=== PATIENT | female | born 2000 | race Caucasian/White ===

== ENCOUNTER → 2021-05-22 09:16 | Outpatient (CLI) | payer BC, SELFPAY ==
--- NOTE | 2021-05-22 09:21 | US_ITS ---
PROCEDURE: US ABDOMEN LIMITED CLINICAL INDICATION: ABD PAIN RUQ, EPIGASTRIC PAIN, BLOATING SYMPTOMS COMPARISON: No exams were available for comparison FINDINGS: PANCREAS: Unremarkable. No obvious mass or abnormal fluid collection. No ductal dilatation LIVER: No focal liver lesions demonstrated. Homogeneous echogenicity. No intrahepatic biliary ductal dilatation evident. There is appropriate direction of blood flow within a non dilated portal vein RIGHT KIDNEY: Unremarkable. Normal size and echogenicity. No hydronephrosis GALLBLADDER: No gallstones, gallbladder wall thickening, pericholecystic fluid, or biliary dilatation. IMPRESSION: Unremarkable limited abdominal ultrasound as detailed above disc Dictated by: Luis Hansen MD 05/22/2021 13:44 Luis Hansen MD in [place] 05/22/2021 13:44
== END ==
PROVIDERS: PCP Family Medicine; Visit Provider Nurse Practitioner Family
DX: R10.11 Right upper quadrant pain (principal); R10.13 Epigastric pain; R14.0 Abdominal distension (gaseous); K59.00 Constipation, unspecified
CPT/HCPCS: 76705

== ENCOUNTER → 2021-06-06 10:11 | Outpatient (CLI) | payer BC, SELFPAY ==
--- NOTE | 2021-06-06 10:15 | NM_ITS ---
PROCEDURE: NM HEPATOBILIARY W PHARM CLINICAL INDICATION: ABD PAIN/ BLOATING SYMPTOMS COMPARISON: US US ABDOMEN LIMITED from 05/22/2021 TECHNIQUE: DOSE: 7.55 mCi technetium Choletec. Ensure was given for fatty meal. No pain after the fatty meal. FINDINGS: Homogeneous activity is present within the hepatic parenchyma. Activity is present in the gallbladder by 5 minutes. Activity is present in the small bowel by 45 minutes. The gallbladder ejection fraction is calculated to be 66 percent. No pain reported with fatty meal. IMPRESSION: Negative hepatobiliary scan with normal gallbladder ejection fraction Dictated by: Luis Hansen MD 06/06/2021 14:51 Luis Hansen MD in [facility] 06/06/2021 14:51
--- NOTE | 2021-06-06 11:16 | HMH.ITSHM ---
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 []SPIRONOLACTONE CONTROL
== END ==
PROVIDERS: PCP Family Medicine; Visit Provider Nurse Practitioner Family
DX: R10.11 Right upper quadrant pain (principal); R14.0 Abdominal distension (gaseous)
CPT/HCPCS: 78227; A9537

== ENCOUNTER → 2021-11-08 20:20 | Outpatient (CLI) | payer BC, SELFPAY ==
--- NOTE | 2021-11-08 20:33 | XR_ITS ---
PROCEDURE INFORMATION: Exam: XR Chest Exam date and time: 11/08/2021 8:33 PM Age: 21 years old Clinical indication: Dyspnea TECHNIQUE: Imaging protocol: XR of the chest. Views: 2 views. COMPARISON: NM HEPATOBILIARY W PHARM 06/06/2021 12:20 PM FINDINGS: Lungs: Mild pulmonary hyperaeration, which may be on the basis of asthmatic bronchitis. No consolidation. Normal appearance of pulmonary vascular markings. Pleural spaces: Unremarkable. No pleural effusion. No pneumothorax. Heart/Mediastinum: Unremarkable. No cardiomegaly. Bones/joints: Unremarkable. IMPRESSION: Mild bilateral pulmonary hyperaeration. The possibility of asthmatic bronchitis is considered. There is no evidence of alveolar consolidation.
== END ==
PROVIDERS: PCP Nurse Practitioner Family; Visit Provider Nurse Practitioner Family
DX: R06.00 Dyspnea, unspecified (principal)
CPT/HCPCS: 71046

== ENCOUNTER 2022-06-23 18:57 | Emergency (ER) | payer BC, SELFPAY ==
[2022-06-23 19:05] VITALS: BP 131/80; PULSE 90; RESP 16; TEMP 36.8; O2SAT 98; BMI 18.6
--- NOTE | 2022-06-23 19:14 | HMH.EDUTC ---
[facility] [place] Disposition Clinical Impression: Encounter for screening for COVID-19 Disposition: Home, Self-Care Condition on Discharge: Good Instructions: DI for COVID-19 (Suspected or Confirmed ), Preventing the Spread of Coronavirus Discharge Instructions Additional Instructions: Drink plenty of fluids. Take tylenol for pain or fever. Follow up with your regular doctor. GO TO THE ER FOR ANY WORSENING SYMPTOMS Quarantine until you know the results of your covid-19 test. Notify your school or workplace of your results and follow their instructions regarding return to work/school. Referrals: Milla Mathew [Primary Care Provider] - Time of Disposition: 19:15 Medical Decision Making - Medical Records Medical records reviewed: No: I reviewed the patient's medical records. - Toribio Inquiry Pt receiving controlled substance: No Vital Signs: 06/23/22 19:05 06/23/22 19:17 Temperature 98.3 F 98.3 F Temperature Source Oral Pulse Rate 90 Pulse Rate [Left] 90 Respiratory Rate 16 16 Blood Pressure 131/80 Blood Pressure [Right Arm] 131/80 Blood Pressure Mean [Right Arm] 97 02 Sat by Pulse Oximetry 98 [facility] [place] HPI - General Stated complaint: COVID TEST FOR sURG 06/26 Time Seen by Provider: 06/23/22 19:10 Mode of Arrival: Ambulatory Source of Information: Patient Limitations: No Limitations Description of Symptoms (Recalled from Triage Doc. by RN): patient comes in for a pre procedure covid test. HEENT Symptoms (Recalled from RN notes): No Resp Symptoms (Recalled from RN notes): No Skin Symptoms (Recalled from RN notes): No MS Symptoms (Recalled from RN notes): No Functional Status (Recalled from RN notes): n/a - History of Present Illness Provider Complaint: She is here to have a covid test before having a surgical procedure. she denies any complaints or concerns. - Related Data Previous Rx's Medication Instructions Recorded cariprazine 1.5 mg capsule 1.5 mg PO DAILY #30 cap 04/19/22 fluoxetine 40 mg capsule 40 mg PO DAILY #30 cap 04/19/22 trazodone 50 mg tablet 50 mg PO QHS PRN #30 tab 04/19/22 Allergies Allergy/AdvReac Type Severity Reaction Status Date / Time No Known Allergies Allergy Verified 04/19/22 11:33 - Worker's Comp Is this a Worker's Comp case?: No [facility] History - Hepatitis A Screen Attestation statement:: This patient has been screened for Hepatitis A risk factors. I have reviewed the patient's past medical history: Yes Comment: She did get the COVID vaccines. -she got the J&J. -and the booster - Social History Smoking Status: Never smoker Alcohol Intake: current Alcohol Intake Frequency:: a few times a month Substance Use Type: denies use Occupational Status: unemployed, other ROS Obtained: Yes All systems reviewed & no additional complaints - Constitutional Constitutional: Reports system reviewed and no additional complaints, except as docu - Eyes Eyes: Reports system reviewed and no additional complaints, except as docu - ENT Ears, Nose, Mouth, and Throat: Reports system reviewed and no additional complaints, except as docu - Cardiovascular Cardiovascular: Reports system reviewed and no additional complaints, except as docu - Respiratory Respiratory: Reports system reviewed and no additional complaints, except as docu - Gastrointestinal Gastrointestingal: Reports: system reviewed and no additional complaints, except as docu Physical Exam - General General appearance: alert, in no apparent distress - Head Head exam: atraumatic, normocephalic, normal inspection - Eye Eye exam: Present: normal appearance, PERRL, EOMI - ENT ENT exam: Present: normal exam, normal oropharynx, mucous membranes moist, TM's normal bilaterally, normal external ear exam - Neck Neck exam: Present: normal inspection, full ROM, trachea midline. Absent: meningismus, lymphadenopathy - Chest Chest inspection: Present: normal inspection, symmetric piter
[2022-06-23 19:17] VITALS: BP 131/80; PULSE 90; RESP 16; TEMP 36.8
== END 2022-06-23 19:18 | disposition home or self-care (01) ==
PROVIDERS: Emergency Provider Nurse Practitioner Family; PCP Nurse Practitioner Family
DX: Z20.822 Contact with and (suspected) exposure to COVID-19 (principal); Z01.812 Encounter for preprocedural laboratory examination
CPT/HCPCS: 99212; C9803; G0463; U0003; U0005

== ENCOUNTER 2025-07-09 06:51 | Outpatient (CLI) | payer BC, SELFPAY ==
--- OUTSIDE RECORDS SUMMARY | 2025-06-07 09:45 | XMS_ITS | Encounter Summary ---
Author Organization [facility] Address [address] [id number] Care Team Providers Care Clinical Physician Assistant Name Role Phone Milla Mathew L[employer] KIL[employer] AND RECAUSTICIZING OPERATOR Primary Care Provider [phone] Reason for Visit * Reason Comments Genetic Counseling Hereditary Cancer Ge netic Testing * Consultation (Routine) - Closed Specialty Diagnoses / Procedures Referred By Contac t Referred To Contact Genetics Diagnoses Encounter for nonprocreative genetic counseling Milla Mathew, L[employer] KIL[employer] AND RECAUSTICIZING OPERATOR [address] [place] [address] Phone: tel: fax: [facility] [address] [facility] [place] [address] Phone: tel: fax: Referral ID Status Reason Start Date Expiration Date V isits Requested Visits Authorized [id number] Closed Specialty Services Required 04/28/2025 10/28/2026 1 1 Encounter Details Date Type Department Care Team (Latest Contact Info) Description 06/07/2025 9:45 AM EDT Clinical Support [facility] Neck [facility] Respiratory [address] [facility] [place] [address] Michelle Pack Encounter for nonprocreative genetic counseling (Primary Dx) Social History Tobacco Use Types Packs/Day Years Used Date Smoking Tobacco: Never Smokeless Tobacco: Never PHQ-2 Answer Date Recorded Patient Health Questionnaire-2 Score 0 06/03/2023 PHQ-2A Answer Date Recorded Patient Health Questionnaire-2 Score 0 06/03/2023 Comments Unknown Sex and Gender Information Value Date Recorded Sex Assigned at Female 11/10/2021 7:55 AM EST Legal Sex Female 6:48 PM EDT Gender Identity Female 11/10/2021 7:55 AM EST Sexual Orientation Straight 11/10/2021 7: 55 AM EST documented as of this encounter Miscellaneous Notes * Progress Notes - Michelle Pack - 06/07/2025 9:45 AM EDT Images from the original note were not included. [facility] Clinical Cancer Genetics Consultation Patient Name: Monica Guerrier Date of : 2000 This patient's identity has been confirmed using name and date of and the patient has confirmed that they are physically located in [place] in order to proceed with this appointment via telehealth. Monica is a 24 y.o. year old female who was referred for genetic counseling due to a family history of paraganglioma and a family history of a known pathogenic SDHD mutation found in her sister. She was accompanied to her visit by her mother. Ms. Guerrier reports no personal history of cancer. Ms. Guerrier provided the following personal history information: Menarche- 12 Total number of pregnancies- 0 Age at first live - N/A Hx - No control use- Yes, used for 6 years Menopause status- premenopausal Hormone replacement use- No Mammogram- No Hx Breast Biopsy- 2 ROSANGELA/BSO- No Colonoscopy- No Upper endoscopy- Yes, in year 2021 Ms. Guerrier was interested in discussing her risk for a hereditary cancer syndrome. FAMILY HISTORY (see pedigree below): - Sister diagnosed with a unilateral paraganglioma at 31, living at 32. 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 - Mother has not been diagnosed with cancer but underwent hereditary cancer genetic testing [facility] panel and was negative, no clinically significant variants detected (report dated 02/03/2025). Of note, her genetic testing did not include the SDHD or ETV6 genes. - Maternal aunt diagnosed with breast cancer at 42, living at 67. - Maternal grandfather diagnosed with lung cancer at 79, at 79. - Paternal grandfather diagnosed with a brain tumor at 50 and colon cancer at 83, at 83. Patient reports that her family believes his brain tumor may have been a paraganglioma. We do have copies of the genetic testing results for the patient's mother and sister. We do not have the medical records regarding the other diagnoses in the patient's family. She denies any Ashkenazi Mu-Ism ancestry or consanguinity. RISK ASSESSMENT: The patient's family history of paraganglioma as well as a known SDHD pathogenic mutation in her sister is concerning for Hereditary Paraganglioma-Pheochromocytoma syndrome. We discussed that Ms. Guerrier has a 50% chance of inheriting the same SDHD pathogenic mutation that was identified in her sister. Genetic testing is reasonable considering the results could significantly change the cancer screening recommendations and risk reduction options for this patient and their family members. This assessment is based upon the medical and family history as provided and may change in the future should new information be obtained. CANCER RISK ASSESSMENT AND GENETIC COUNSELING: We reviewed the patient's medical and family historyin detail. We also discussed the characteristics of sporadic cancer versus familial cancer versus hereditary cancer syndromes. Family histories typical of hereditary cancer syndromes usually include multiple close relatives diagnosed with the same type of cancer or cancer types that are part of a defined hereditary condition. Hereditary cancer is usually diagnosed at a younger than expected age (<50 years of age) and may involve more than one primary site in a single individual. Regarding the hereditary forms of cancer, autosomal dominant inheritance was reviewed. We briefly discussed potential changes in screening and management guidelines that could occur, based on genetic testing results. Since there is a known pathogenic SDHD mutation identified in the family, we specifically discussedSDHD-associated Hereditary Paraganglioma-Pheochromocytoma (PGL/PCC) syndrome. PGL/PCC syndrome is caused by pathogenic mutations in the SDHx genes. There are specific phenotype-genotype correlations associated with the different SDHx genes. SDHD-associated PGL/PCC is primarily associated with head and neck paragangliomas (PGLs), although extra-adrenal PGL and PCC can occur. Patients with SDHD mutations are more likely to have multifocal disease than patients with sporadic tumors or those with mutations in SDHB genes. SDHD- associated PGL/PCCs have a <5% risk of malignancy. Approximately 43%of patients with an SDHD mutation have a PGL/PCC identified in their lifetime, however the risk tends to be decreased if the mutation was inherited from the patient's mother. Individuals who inherit an SDHD mutation from their father is at high risk of developing PGL/PCC. Individuals who inherit anSDHD mutation from their mother is usually not at risk of developing disease, however there have been reports of individuals with maternally-inherited SDHD mutations developing PGL/PCC. The SDHD gene shows a parent of origin effect. In most cases, only individuals who inherit the SDHDgene mutation from their fathers are at increased risk to develop the disease manifestations associated with Hereditary PPGL syndrome. When possible, genetic testing of parents may help predict the likelihood that this patient will be affected by Hereditary PPGL syndrome. Because Ms. Guerrier's sister developed a paraganglioma and was found to have the familial SDHD mutation, it is highly likely this mutation was inherited from their father. However, it is not yet certain that there is no risk when the SDHD gene mutation is inherited from the mother, and the inheritance of this mutation has not been confirmed. Other tumors associated with hereditary PGL/PCC syndromes include gastrointestinal stromal tumors (GISTs), however these do not tend to occur as frequently in patients with SDHD mutations. Renal cellclear cell cancers are also included in the tumor spectrum of PGL/PCC syndromes, however the overall risk is currently unknown. We also reviewed management recommendations for individuals with a pathogenic SDHD mutation. We discussed the concept of a variant of uncertain significance result due to her sister's identification of a variant of uncertain significance in the ETV6 gene. The laboratory reports a VUS when they don???t know if that exact change causes an increased risk of cancer or not. It is not recommended that changes to a patient's clinical management be based upon a VUS genetic test result. The majority of VUSs are eventually reclassified to be benign. GENETIC TESTING: Ms. Guerrier meets criteria for SDHD genetic testing since there is a known pathogenic SDHD mutation previously identified in the patient's sister. After reviewing the patient???s medical history, family histories, and risk assessment, we discussed genetic testing options. We reviewed the risks, benefits, and limitations of Single Site Analysis of SDHD through [facility]. This test analyzes Ms. Guerrier for the specific SDHD mutation that was identified in her sister. We discussed that since Ms. Guerrier has an unexplained paternal history of colon cancer and apossible brain tumor in her paternal grandfather that was suspected to be a paraganglioma, it wouldbe reasonable to consider pursuing a panel test at this time. Ms. Guerrier expressed interest in knowing if she may also have the ETV6 VUS for future reclassification purposes. ? The patient elected to proceed with the following test: ? CancerNext-Expanded Genes included: AIP, ALK, APC, FIOR, AXIN2, BAP1, BARD1, BMPR1A, BRCA1, BRCA2, BRIP1, CDC73, CDH1, CDK4, CDKN1B, CDKN2A, CEBPA, CHEK2, CTNNA1, DDX41, DICER1, EGFR, EPCAM, ETV6, FH, FLCN, GATA2, GREM1,HOXB13, KIT, LZTR1, MAX, MBD4, MEN1, MET, MITF, MLH1, MSH2, MSH3, MSH6, MUTYH, NF1, NF2, NTHL1, PALB2, PDGFRA, PHOX2B, PMS2, POLD1, POLE, POT1, CGEHU2A, PTCH1, PTEN, RAD51C, RAD51D, RB1, RET, RPS20, RUNX1, SDHA, SDHAF2, SDHB, SDHC, SDHD, SMAD4, SMARCA4, SMARCB1, SMARCE1, STK11, SUFU, WAKW447, TP53,TSC1, TSC2, VHL, WT1 ? Lab: [facility] ? Turnaround Time: Approximately 3 weeks ? We explained possible results of genetic testing including positive or negative and briefly discussed the implications of each. PLAN: A saliva sample kit will be sent to the patient's address, and they will complete and send it to [facility] laboratory for testing of the genes in the panel above. [facility] will contact the patient's insurance company to find out if they will pay for the testing. If it is estimated that the patient will receive a bill greater than $100, a hr representative from [facility] will call or text the patient to discuss whether or not the patient still wants the testing performed, the laboratory's available payment plans, etc. I will contact the patient by phone with the genetic test results when they are available, usually in about 3 weeks from the date that the lab receives the sample. The Genetic Information Nondiscrimination Act (ROSA ELENA) was reviewed. It was a pleasure to meet with this patient and I remain available to the patient, their physicians, and family for future questions or concerns. I can be reached at [phone]. Written informationregarding genetic testing was sent to the patient following their appointment. Telehealth Statement Patient Verification Patient identity has been confirmed using name and date of ? Yes Authorizations and Agreements/Telemedicine Consent sent and consent confirmed? Yes Patient Location: Home/Other Patient confirms they are physically located in [place]? Yes If the patient is not physically located in [place], the provider has confirmed [facility] thatthe provider is authorized to provide services in patient's stated location? N/a Provider Location: [facility] facility Audio and video or audio only? Audio and video Total time regarding patient care was approximately 60 minutes Cosigned by Jackie Nava GC at 06/08/2025 10:02 AM EDT Associated attestation - Jackie Nava GC - 06/08/2025 10:02 AM EDT Jackie Nava, , [facility] reviewed this patient's case and agrees with the recommendations that werediscussed and the testing that was ordered. documented in this encounter Plan of Treatment Not on file documented as of this encounter Visit Diagnoses Diagnosis Encounter for nonprocreative genetic counseling- Primary documented in this encounter Additional Health Concerns Assessment Noted Time A fall risk assessment has been complete d for the patient 06/03/2023 8:27 AM EDT documented as of this encounter Care Teams Clinical Physician Assistant Relationship Specialty Start Date End Date Milla Mathew APRN [address] [place] [address] PCP - General 06/03/23 documented as of this encounter
--- OUTSIDE RECORDS SUMMARY | 2025-07-09 06:54 | XMS_ITS | Clinical Summary ---
[facility] Organization [facility] Address [address] [place] [address] Care Team Providers Care No Bake Molder Name Role Phone Tiffanie Aguilar APRN Primary Care Provider Allergies No known active allergies Medications ALPRAZolam (XANAX) 0.5 MG tablet Take 1 tablet by mouth 2 (Two) Times a Day As Needed. for anxiety 3 Active levonorgestrel (Kyleena) 19.5 MG intrauterine device IUD To be inserted one time by prescriber. Route intrauterine. 3 Active Tretinoin, Facial Wrinkles, (Tretinoin, Emollient,) 0.05 % cream Apply topically. Active Vortioxetine HBr (Trintellix) 10 MG tablet tabletIndications :Generalized anxiety disorder Take 1 tablet by mouth Daily. 90 tablet 1 5 Active Active Problems Problem Noted Date Diagnosed Date Family history of breast cancer 06/04/2023 Assessment & Plan (06/04/2023 4:44 PM EDT): Maternal aunt diagnosed in her 40s-unsure of genetic testing. Mass of upper outer quadrant of right breast 09/2023 Anxiety and depression 11/10/2021 Generalized anxiety disorder 11/08/2021 Encounters Date Type Department Care Team Description 07/08/2025 Documentation [facility] GENERAL SURGERY [address] [place] [address] Jael Elise MD 07/07/2025 Telephone [facility]ERY [address] [facility] [address] [place] [address] Jael Elise MD 07/06/2025 Telephone [facility] [address] [facility] [address] [place] [address] Jael Elise MD 07/05/2025 Travel 06/28/2025 Prep for Surgery [facility] [address] [place] [address] Jael Elise MD Biliary dyskinesia (Primary Dx) 04/28/2025 Patient rounding ([facility]) [facility] [address] [place] [address] Jessica Montano 04/25/2025 Results Follow-Up [facility] [address] [place] [address] Tiffanie Aguilar APRN 04/21/2025 11:00 AM EDT Office Visit [facility] [address] [place] [address] Tiffanie Aguilar, LINDA Generalized anxiety disorder (Primary Dx); Screening for endocrine disorder; Screening for cardiovascular condition; History of breast lump/mass excision; History of abnormal cervical Pap smear 04/21/2025 Travel from Last 3 Months Immunizations Immunization Administration Dates Next Due DTaP, Unspecified 09/22/2003, 1,03/14/2000,12/30,1999 Fluzone (or Fluarix & Flulav al for VFC) >6mos 09/05/2020 HPV, Unspecified 11/22/2014,07/01/2014, 4 Hep A, 2 Dose 07/03/2018 Hep B, Unspecified 09/16/2000,06/14/2000, 000 Hib (PRP-T) 12/16/2000, 0,01/09/2000,10/31 IPV 09/22/2003 Influenza Injectable Mdck Pf Quad 08/24/2022 MCV4 Unspecified 06/07/2011 MMR 09/22/2003,09/16/2000 Meningococcal MCV4P (Menactra) 07/03/2018 Pneumococcal Conjugate 13-Va lent (PCV13) 12/16/2000,09/16/2000,06/14/2000 Polio, Unspecified 01/09/2008,12/16/2000, 999 Tdap 06/27/2021,05/28/2011 Varicella 06/07/2011,09/16/2000 Family History Medical History Relation Name Comments Breast cancer Maternal Aunt Caron Hernández 30's Diabetes Paternal Aunt Andra Berry Colon cancer Paternal Grandfather Nancie Guerrier Diabetes Paternal Grandfather Nancie Guerrier Diabetes Paternal Grandmother Kathi Guerrier Stroke Paternal Grandmother Kathi Guerrier Vision loss Paternal Grandmother Kathi Guerrier Gla ucoma Endometrial cancer Neg Hx Ovarian cancer Neg Hx Uterine cancer Neg Hx Relation Name Status Comments Maternal Aunt Caron Hernández Paternal Aunt Andra Berry Paternal Grandfather Nancie Fareed Paternal Grandmother Kathi Guerrier Social History Tobacco Use Types Packs/Day Years Used Date Smoking Tobacco: Never Smokeless Tobacco: Never Tobacco Cessation:Counseling Given: Not Answered Alcohol Use Standard Drinks/Week Comments Yes 0 (1 standard drink = 0.6 oz pur e alcohol) occasional PHQ-2 Answer Date Recorded Patient Health Questionnaire-2 Score 0 04/21/2025 Comments No Sex and Gender Information Value Date Recorded Sex Assigned at Female 02/10/2024 7:51 PM EDT Legal Sex Female 11:27 AM EDT Gender Identity Female 02/10/2024 7:51 PM EDT Sexual Orientation Not on file Last Filed Vital Signs Vital Sign Reading Time Taken Comments Blood Pressure 112/68 04/21/2025 11:05 AM EDT Pulse 91 04/21/2025 11:05 AM EDT Temperature 36.4 C (97.5 F) 04/21/2025 11:05 AM EDT Respiratory Rate 14 04/21/2025 11:05 AM EDT Oxygen Saturation 99% 04/21/2025 11:05 AM EDT Inhaled Oxygen Concentration - - Weight 59 kg (130 lb) 04/21/2025 11:05 AM EDT Height 170.2 cm (5' 7 ) 04/21/2025 11:05 AM EDT Body Mass Index 20.36 04/21/2025 11:05 AM EDT Plan of Treatment Upcoming Encounters Date Type Department Care Team (Late st Contact Info) Description 03/11/2026 8:50 AM EDT Office Visit [facility] OBGYN [address] [place] [address] Hugo Trent MD [address] [facility] [address] [place] [address] Health Maintenance Due Date Last Done Comments ANNUAL PHYSICAL 05/11/2022 HEPATITIS C SCREENING 05/11/2022 COVID-19 Vaccine (3 - 2023-2 5 season) 2024 09/21/2021, 02/25/2021 INFLUENZA VACCINE 08/25/2025 08/24/2022, 09/05/2020 PAP SMEAR 02/16/2026 02/16/2025, 02/11/2024 Annual Gynecologic Pelvic an d Breast Exam 02/17/2026 02/16/2025 TDAP/TD VACCINES (3 - Td or Tdap) 06/27/2031 021, 05/28/2011 Pneumococcal Vaccine 0-49 Completed 2000, 09/16/2000, 06/14/2000 HPV VACCINES Completed 11/22/2014, 08/0 05/2014, 05/11/2014 MAMMOGRAM Discontinued 06/11/2023 CHLAMYDIA SCREENING Discontinued 02/16/2025, 4 Procedures Procedure Name Priority Date/Time Associated Diagnosis Comments US GALLBLADDER Routine 07/05/2025 10:01 AM EDT RUQ pain VITAMIN B12 AND FOLATE Routine 04/21/2025 11:52 AM EDT Generalized anxiety disorder VITAMIN D,25-HYDROXY Routine 04/21/2025 11:52 AM EDT Generalized anxiety disorder CBC (NO DIFF) Routine 04/21/2025 11:52 AM EDT Generalized anxiety disorder TSH Routine 04/21/2025 11:52 AM EDT Generalized anxiety disorder Screening for endocrine disorder T4, FREE Routine 04/21/2025 11:52 AM EDT Generalized anxiety disorder Screening for endocrine disorder LIPID PANEL Routine 04/21/2025 11:52 AM EDT Generalized anxiety disorder Screening for cardiovascular condition COMPREHENSIVE METABOLIC PANEL Routine 04/21/2025 11:52 AM EDT Generalized anxiety disorder LIQUID-BASED PAP SMEAR WITH HPV GENOTYPING REGARDLESS OF INTERPRETATION, [facility] (DERRICK,COR,MAD) Routine 02/16/2025 3:52 PM EDT Women's annual routine gynecological examination History of abnormal cervical Pap smear HPV in female MAMMO OUTSIDE FILMS Routine 06/11/2023 1 1:01 AM EDT H/O mammogram from Last 3 Months or Most Recently Relevant to Health Maintenance Results * US Gallbladder (07/05/2025 10:01 AM EDT) Anatomical Region Laterality Modality Body, Abdomen Ultrasound Impressions 07/06/2025 8:07 AM EDT Normal gallbladder ultrasound Narrative 07/06/2025 8:07 AM EDT RIGHT UPPER QUADRANT ULTRASOUND The patient did have a right upper quadrant ultrasound performed today in the normal manner. There was good visualization obtained of the liver, there was noted to be no evidence of abnormalities. The gallbladder was well visualized, there was no evidence of gallbladder wall thickening, the wall measurement was 3 mm in size. There was no evidence of cholelithiasis noted. The common bile duct was noted to be 2 mm in size. There was no evidence of pericholecystic fluid. Jael Elise MD [facility] US ORDERABLES Final Result * Vitamin B12 & Folate (04/21/2025 11:52 AM EDT) Vitamin B-12 591 232 - 1,245 pg/mL [facility] Folate >20.0 >3.0 ng/mL [facility] Comment: A serum folate concentration of less than 3.1 ng/mL is considered to represent clinical deficiency. Blood 04/21/2025 11:5 2 AM EDT 04/21/2025 Narrative [facility] ([facility]ATORY) - 04/23/2025 7:09 AM EDT Performed at: 01 - [address] [id number] Skin Drier: Guicho Ramos PhD, Phone: [phone] Patient Fasting: Y Tiffanie Aguilar GARMENT FITTER LAB BLOOD ORDERABLES Final R esult [facility] [address] [place] [address], [facility] [address] [place] [address], * Vitamin D,25-Hydroxy (04/21/2025 11:52 AM EDT) 25 Hydroxy, Vitamin D 79.1 30.0 - 100.0 ng/mL [facility] Comment: Vitamin D deficiency has been defined by the [place] of Medicine and an Endocrine Society practice guideline as a level of serum 25-OH vitamin D less than 20 ng/mL (1,2). The Endocrine Society went on to further define vitamin D insufficiency as a level between 21 and 29 ng/mL (2). 1. IOM ([place] of Medicine). 2010. Dietary reference intakes for calcium and D. Fonseca [place]: The National Academies Press. 2. Danilo MF, Matheus NC, Ele SINGER, et al. Evaluation, treatment, and prevention of vitamin D deficiency: an Endocrine Society clinical practice guideline. JCEM. 2010; 96(7):1911-30. Blood 04/21/2025 11:5 2 AM EDT 04/21/2025 Narrative [facility] ([facility]ORY) - 04/23/2025 7:09 AM EDT Performed at: - [address] [id number] Skin Drier: Guicho Ramos PhD, Phone: [phone] Patient Fasting: Y Tiffanie Aguilar APRN LAB BLOOD ORDERABLES Final R esult Performing Organization Address [facility]/ZIP Co de Phone Number [facility] (AMBULATORY) [address] [place] [address], [facility] [address] [place] [address], * (ABNORMAL) CBC (No Diff) (04/21/2025 11:52 AM EDT) Pathologist [facility] WBC 8.2 3.4 - 10.8 x10E3/uL [facility] RBC 5.28 3.77 - 5.28 x10E6/uL [facility] Hemoglobin 15.4 11.1 - 15.9 g/dL [facility] Hematocrit 47.9(H) 34.0 - 46.6 % [facility] MCV 91 79 - 97 fL [facility] MCH 29.2 26.6 - 33.0 pg [facility] MCHC 32.2 31.5 - 35.7 g/dL [facility] RDW 12.1 11.7 - 15.4 % [facility] Platelets 381 150 - 450 x10E3/uL [facility] Blood 04/21/2025 11:5 2 AM EDT 04/21/2025 Narrative [facility] ([facility]) - 04/23/2025 7:09 AM EDT Performed at: 01 - [facility] [address] [place] [id number] Skin Drier: Guicho Ramos PhD, Phone: [phone] Patient Fasting: Y Tiffanie Aguilar APRN LAB BLOOD ORDERABLES Final R esult [facility] ([facility]) [address] [place] [address], [facility] [address] [place] [address], * TSH (04/21/2025 11:52 AM EDT) [facility] TSH 1.090 0.450 - 4.500 uIU/mL [facility] Blood 04/21/2025 11:5 2 AM EDT 04/21/2025 [facility] ([facility]) - 04/23/2025 7:09 AM EDT Performed at: [address] [place] [id number] Skin Drier: Guicho Ramos PhD, Phone: [phone] Patient Fasting: Y Tiffanie Aguilar APRN LAB BLOOD ORDERABLES Final R esult Performing Organization Address [facility] Co de Phone Number [facility]) [address] [place] [address], [place] [phone] [facility] [address] [place], [place] [id number], [place] [phone] * T4, Free (04/21/2025 11:52 AM EDT) [facility] Free T4 1.37 0.82 - 1.77 ng/dL [facility] Blood 04/21/2025 11:5 2 AM EDT 04/21/2025 [facility] ([facility]) - 04/23/2025 7:09 AM EDT Performed at: [address] [place] [id number] Skin Drier: Guicho Ramos PhD, Phone: [phone] Patient Fasting: Y Tiffanie Aguilar APRN LAB BLOOD ORDERABLES Final R esult [facility] [address] [place] [address], [place] [phone] [facility] [address] [place] [address], [place] [phone] * Lipid Panel (04/21/2025 11:52 AM EDT) Total Cholesterol 173 100 - 199 mg/dL [facility] Triglycerides 67 0 - 149 mg/dL [facility] HDL Cholesterol 61 >39 mg/dL [facility] VLDL Cholesterol Bogdan 13 5 - 40 mg/dL [facility] LDL Chol Calc (NIH) 99 0 - 99 mg/dL [facility] Blood 04/21/2025 11:5 2 AM EDT 04/21/2025 Narrative [facility] ([facility]) - 04/23/2025 7:09 AM EDT Performed at: - [address] [id number] Skin Drier: Guicho Ramos PhD, Phone: [phone] Patient Fasting: Y us Tiffanie Aguilar GARMENT FITTER LAB BLOOD ORDERABLES Final R esult [facility] [address] [place] [address], [facility] [address] [place] [address], * (ABNORMAL) Comprehensive Metabolic Panel (04/21/2025 11:52 AM EDT) Pathologist [facility] Glucose 86 70 - 99 mg/dL [facility] BUN 13 6 - 20 mg/dL [facility] Creatinine 0.67 0.57 - 1.00 mg/dL [facility] EGFR Result 124 >59 mL/min/1.7 3 [facility] BUN/Creatinine Ratio 19 9 - 23 [facility] Sodium 140 134 - 144 mmol/L [facility] Potassium 4.6 3.5 - 5.2 mmol/L [facility] Chloride 101 96 - 106 mmol/L [facility] Total CO2 22 20 - 29 mmol/L [facility] Calcium 9.9 8.7 - 10.2 mg/dL [facility] Total Protein 8.0 6.0 - 8.5 g/dL [facility] Albumin 5.2(H) 4.0 - 5.0 g/dL [facility] Globulin 2.8 1.5 - 4.5 g/dL [facility] Total Bilirubin 0.4 0.0 - 1.2 mg/dL [facility] Alkaline Phosphatase 77 44 - 121 IU/L [facility] AST (SGOT) 26 0 - 40 IU/L [facility] ALT (SGPT) 35(H) 0 - 32 IU/L [facility] Blood 04/21/2025 11:5 2 AM EDT 04/21/2025 Narrative [facility] ([facility]) - 04/23/2025 7:09 AM EDT Performed at: - [facility] [address] [place] [id number] Skin Drier: Guicho Ramos PhD, Phone: [phone] Patient Fasting: Y Tiffanie Aguilar APRN LAB BLOOD ORDERABLES Final R esult [facility] ([facility]) [address] [place] [address], [facility] [address] [place] [address], * LIQUID-BASED PAP SMEAR WITH HPV GENOTYPING REGARDLESS OF INTERPRETATION (DERRICK,COR,MAD) (02/16/2025 3:52 PM EDT) Reference Lab Report [facility] [address] [place] [address] or [phone] Beny Macias M.D., Audience Development Manager PATIENT NAME LABORATORY NO. [address] GUERRIER MONICA Pedrito [id number] AGE SEX SSN CLIENT REF # [facility] [address] 2000 F [id number] [address] REQUESTING Yamila [place] [address] HUGO TRENT DATE COLLECTED DATE RECEIVED DATE REPORTED 02/16/2025 02/16/2025 02/22/2025 ThinPrep Pap with Sq[employer] DIAGNOSIS: Epithelial cell abnormality. (LSIL) Low Grade Squamous Intraepithelial Lesion. Professional interpretation rendered by Beny Macias M.D., F.C.AMarbella. at [facility], [facility], [address] [place] [address]. SPECIMEN ADEQUACY: SATISFACTORY FOR EVALUATION Transformation zone is present. SOURCE OF SPECIMEN: CERVICAL/ENDOCERVI BOGDAN SLIDES: 1 CLINICAL HISTORY: Women's annual routine gynecological examination History of abnormal cervical Pap smear HPV in female, IUD HPV HR-HPV POOL: Negative The Aptima HPV assay is an in vitro nucleic acid amplification test for the qualitative detection of E6/E7 viral messenger RNA from 14 high risk types of HPV in cervical specimens. The high risk HPV types detected include: 16, 18, 31, 33, 35, 39, 45, 51, 52, 56, 58, 59, 66, 68 Chlamydia / Gonorrhea CHLAMYDIA TRACHOMATIS: Negative NEISSERIA GONORRHOEAE: Negative The Aptima Combo 2 assay is a target amplification nucleic acid probe test that utilizes target capture for the in vitro qualitative detection and differentiation of ribosomal RNA from Chlamydia trachomatis and Neisseria gonorrhoeae to aid in the diagnosis of chlamydial and gonococcal disease using the [place] system. FLOOR FRAMER: ALIX HUNTER (ASCP) REVIEWED, DIAGNOSED AND ELECTRONICALLY SIGNED BY: Beny Macias M.D., Woody.C.A.P. CPT CODES: [id number], [id number], [id number], [id number], [id number] 02/22/2025 6:53 AM EDT [facility] ThinPrep Vial Collection / Unknown 02/16/2025 3:52 PM EDT 02/16/2025 3:52 PM EDT Hugo Trent MD PATHOLOGY/CYTOLOGY ORDERABLES F inal Result [facility]
[address] [place] [address], * MAMMO Outside Films (06/11/2023 11:01 AM EDT) Narrative SYSTEMGENERATED, DOCUMENTATION - 06/11/2023 11:01 AM EDT This procedure was auto-finalized with no dictation required. Janet Albert APRN IMG MAMMOGRAPHY ORDERABLES F inal Result from Last 3 Months or Most Recently Relevant to Health Maintenance Insurance [employer] PPO Care Teams No Bake Molder Relationship Specialty Start Date End Date Tiffanie Aguilar APRN [address] [place] [address] PCP - General Nurse Practitioner 04/21/25
--- OUTSIDE RECORDS SUMMARY | 2025-07-09 06:54 | XMS_ITS | Encounter Summary ---
Author Organization [facility] Address [address] [place] [address] Care Team Providers Care Balance Staff Staker Name Role Phone Tiffanie Aguilar APRN Primary Care Provider Reason for Referral * Surgical (Routine) - Pending Review Specialty Diagnoses / Procedures Referred By Contac t Referred To Contact Diagnoses Biliary dyskinesia Procedures External Facility Surgical / Procedural Request Jael Elise MD [address] [address] Phone: tel: fax: [facility] AT [address] [address] Phone: tel: fax: Referral ID Status Reason Start Date Expiration Date V isits Requested Visits Authorized [id number] Pending Review Other 06/28/2025 09/27/2026 1 1 Encounter Details Date Type Department Care Team (Late st Contact Info) Description 06/28/2025 Prep for Surgery [facility] [address] [place] [address] Jael Elise MD 1110 [facility] 3 [place] [phone] Biliary dyskinesia (Primary Dx) Social History Tobacco Use Types Packs/Day Years Used Date Smoking Tobacco: Never Smokeless Tobacco: Never Alcohol Use Standard Drinks/Week Comments Yes 0 (1 standard drink = 0.6 oz pur e alcohol) occasional PHQ-2 Answer Date Recorded Patient Health Questionnaire-2 Score 0 04/21/2025 Comments No Sex and Gender Information Value Date Recorded Sex Assigned at Female 02/10/2024 7:51 PM EDT Legal Sex Female 11:27 AM EDT Gender Identity Female 02/10/2024 7:51 PM EDT Sexual Orientation Not on file documented as of this encounter Plan of Treatment Upcoming Encounters Date Type Department Care Team (Late st Contact Info) Description 03/11/2026 8:50 AM EDT Office Visit [facility] OBGYN [address] [place] [address] Deborah Salomon MD [address] [address] Scheduled Orders Name Type Priority Associated Diagnoses Orde r Schedule External Facility Surgical / Procedural Request Procedures Routine Biliary dyskinesia Ordered: 06/28/2025 documented as of this encounter Visit Diagnoses Diagnosis Biliary dyskinesia- Primary Other specified disorder of gallbladder documented in this encounter Care Teams Balance Staff Staker Relationship Specialty Start Date End Date Tiffanie Aguilar APRN [address] [place] [address] PCP - General Nurse Practitioner 04/21/25 documented as of this encounter
--- OUTSIDE RECORDS SUMMARY | 2025-07-09 06:54 | XMS_ITS | Encounter Summary ---
Author Organization [facility] Address [address] [place] [address] Care Team Providers Care Dye Automation Operator Name Role Phone JeffTiffanie [place] MCKEON Primary Care Provider Encounter Details Date Type Department Care Team (Late st Contact Info) Description 07/08/2025 Documentation [facility] GENERAL SURGERY [address] [place] [address] Jael Elise MD 1110 [facility] [address] [place] [phone] Social History Tobacco Use Types Packs/Day Years [...] on file documented as of this encounter Progress Notes * Jael Elise MD - 07/08/2025 9:00 AM EDT I spoke to this patient on the phone several times in the past few days. She complains of continuedabdominal pain, nausea, and vomiting. She is familiar to me as I saw her in 2021 for the same issues. She had a normal gallbladder ultrasound at that time. Her Hida scan was normal at that time but she did have a reproduction of her symptoms after the second injection. EGD in 2021 was normal. She states that the pain has been intermittent over the past several years and is worsening. She had a recent gallbladder ultrasound that was again normal. Patient had a repeat ultrasound that was negative, however with persistent symptoms of nausea abdominal pain epigastric pain with fatty food intolerance, patient will need a HIDA scan to confirm the diagnosis. Her last HIDA scan was 3 years ago. Hersymptoms have worsened since that time. documented in this encounter Plan of Treatment Upcoming Encounters Date Type Department Care Team (Late st Contact Info) Description 03/11/2026 8:50 AM EDT Office Visit [facility] OBGYN [address] [place] [address] Deborah Salomon MD [address] [address] documented as of this encounter Visit Diagnoses Not on filedocumented in this encounter Care Teams Dye Automation Operator Relationship Specialty Start Date End Date Tiffanie Aguilar APRN [address] [place] [address] PCP - General Nurse Practitioner 04/21/25 documented as of this encounter
--- OUTSIDE RECORDS SUMMARY | 2025-07-09 06:54 | XMS_ITS | Encounter Summary ---
Author Organization Healthcare Address [address] [place] [address] Care Team Providers Care Section Gang Worker Name Role Phone Pcp, No Primary Care Provider Milla Carr BOILER ROOM OPERATOR Primary Care Provider [phone] Reason for Referral * Consultation (Routine) - Closed Specialty Diagnoses / Procedures Referred By Contac t Referred To Contact Gastroenterology Diagnoses Irritable bowel syndrome with constipation Milla Mathew, BOILER ROOM OPERATOR [address] [place] [address] Phone: tel: fax: Maria Del Carmen Whitlock MD [address] [facility] [address] [place] [address] Phone: tel: fax: Referral ID Status Reason Start Date Expiration Date V isits Requested Visits Authorized [id number] Closed Specialty Services Required 04/03/2023 10/02/2024 1 1 Encounter Details Date Type Department Care Team (Late st Contact Info) Description 04/03/2023 [facility] [address] [place] [address] Milla Mathew, BOILER ROOM OPERATOR [address] [place] [address] Irritable bowel syndrome with constipation (Primary Dx) Social History Tobacco Use Types Packs/Day Years Used Date Smoking Tobacco: Never Smokeless Tobacco: Never PHQ-2 Answer Date Recorded PHQ-2 Score 2 11/10/2021 Comments Unknown Sex and Gender Information Value Date Recorded Sex Assigned at Female 11/10/2021 7:55 AM EST Legal Sex Female 6:48 PM EDT Gender Identity Female 11/10/2021 7:55 AM EST Sexual Orientation Straight 11/10/2021 7: 55 AM EST documented as of this encounter Plan of Treatment Scheduled Referrals Name Type Priority Associated Diagnoses Order Schedule Ambulatory referral to Gastroenterology Outpatient Referral Routine Irritable bowel syndrome with constipation Expected: 04/03/2023 (Approximate), Expires: 10/04/2024 documented as of this encounter Visit Diagnoses Diagnosis Irritable bowel syndrome with constipation- Primary Irritable bowel syndrome documented in this encounter Care Teams Section Gang Worker Relationship Specialty Start Date End Date Pcp, No [address] [place] [address] PCP - General Family Medicine 11/10/21 06/02/23 Milla Mathew, BOILER ROOM OPERATOR [address] [place] [address] PCP - General 06/03/23 documented as of this encounter
--- OUTSIDE RECORDS SUMMARY | 2025-07-09 06:54 | XMS_ITS | Encounter Summary ---
[facility] [address] [place] [address] Care Team Providers Care Sand Bobber Name Role Phone JeffJosé Miguellance Gaviria APRN Primary Care Provider Encounter Details Date Type Department Care Team (Late st Contact Info) Description 07/06/2025 Telephone [facility] GENERAL SURGERY [address] [facility] [address] [place] [address] Jael Elise MD [address] [facility] [address] [place], [place] [id number] Social History Tobacco Use Types Packs/Day Years [...] on file documented as of this encounter Miscellaneous Notes * Telephone Encounter - Rebecca Valladares RegSched Rep - 07/06/2025 3:33 PM EDT transfer process and was unsuccessful Caller: GREGG FROM [facility] Relationship to patient: Other Best call back number: [phone] Patient is needing: STATES NEED PRIOR AUTH TO SCHEDULE HIDA SCAN documented in this encounter Plan of Treatment Upcoming Encounters Date Type Department Care Team (Late st Contact Info) Description 03/11/2026 8:50 AM EDT Office Visit [facility] OBGYN [address] [place] [address] Deborah Salomon MD [address] [address] documented as of this encounter Visit Diagnoses Not on filedocumented in this encounter Care Teams Sand Bobber Relationship Specialty Start Date End Date Tiffanie Aguilar APRN [address] [place] [address] PCP - General Nurse Practitioner 04/21/25 documented as of this encounter
--- OUTSIDE RECORDS SUMMARY | 2025-07-09 06:54 | XMS_ITS | Encounter Summary ---
[facility] [address] [place] [address] Care Team Providers Care Gsa Coordinator Name Role Phone Jeff Tiffanielance Gaviria APRN Primary Care Provider Encounter Details Date Type Department Care Team (Late st Contact Info) Description 07/07/2025 Telephone [facility] GENERAL SURGERY [address] [facility] [address] [place] [address] Jael Elise MD [address] [facility] [address] [place] [address] Social History Tobacco Use Types Packs/Day Years [...] encounter Miscellaneous Notes * Telephone Encounter - Vickie Ruiz MA - 07/07/2025 11:26 AM EDT . documented in this encounter Plan of Treatment Upcoming Encounters Date Type Department Care Team (Late st Contact Info) Description 03/11/2026 8:50 AM EDT Office Visit [facility] OBGYN [address] [place] [address] Deborah Salomon MD [address] [address] documented as of this encounter Visit Diagnoses Not on filedocumented in this encounter Care Teams Gsa Coordinator Relationship Specialty Start Date End Date Tiffanie Aguilar APRN [address] [place] [address] PCP - General Nurse Practitioner 04/21/25 documented as of this encounter
--- OUTSIDE RECORDS SUMMARY | 2025-07-09 06:54 | XMS_ITS | Encounter Summary ---
Author Organization [facility] Address [address] [place] [address] Care Team Providers Care Campus Recruiting Intern Name Role Phone Tiffanie Aguilar APRN Primary Care Provider Encounter Details Date Type Department Care Team (Latest Contact Info) Description 07/05/2025 Travel Social History Tobacco Use Types Packs/Day Years [...] Description 03/11/2026 8:50 AM EDT Office Visit [facility] OBGYN [address] [place] [address] Deborah Salomon MD [address] [place] [id number] documented as of this encounter Visit Diagnoses Not on filedocumented in this encounter Care Teams Campus Recruiting Intern Relationship Specialty Start Date End Date Tiffanie Aguilar APRN [address] [place] [address] PCP - General Nurse Practitioner 04/21/25 documented as of this encounter
--- OUTSIDE RECORDS SUMMARY | 2025-07-09 06:54 | XMS_ITS | Encounter Summary ---
[facility] [address] [place] [address] Care Team Providers Care Stunt Woman Name Role Phone Tiffanie Aguilar Everette MCKEON Primary Care Provider Encounter Details Date Type Department Care Team (Late Contact Info) Description 02/26/2025 Results Follow-Up [facility] OBGYN [address] [place] [phone] Deborah Salomon MD [address] [place] [id number] Social History Tobacco Use Types Packs/Day Years Used Date Smoking Tobacco: Never Smokeless Tobacco: Never Alcohol Use Standard Drinks/Week Comments Yes 0 (1 standard drink = 0.6 oz pur e alcohol) occasional Comments No Sex and Gender Information Value Date Recorded Sex Assigned at Female 02/10/2024 7:51 PM EDT Legal Sex Female 11:27 AM EDT Gender Identity Female 02/10/2024 7:51 PM EDT Sexual Orientation Not on file documented as of this encounter Progress Notes * Deborah Salomon MD - 02/26/2025 6:08 PM EDT This can be a repeat in 12 months or a colposcopy. If had vaccine I am ok with repeating in 12 months but ultimately up to her. documented in this encounter Plan of Treatment Upcoming Encounters Date Type Department Care Team (Late Contact Info) Description 03/11/2026 8:50 AM EDT Office Visit [facility] OBGYN [address] [place] [address] Deborah Salomon MD [address] [facility] [address] [place] [address] documented as of this encounter Visit Diagnoses Not on filedocumented in this encounter Care Teams Stunt Woman Relationship Specialty Start Date End Date Tiffanie Aguilar, LINDA [address] [place] [address] PCP - General Nurse Practitioner 04/21/25 documented as of this encounter
--- OUTSIDE RECORDS SUMMARY | 2025-07-09 06:55 | XMS_ITS | Patient Health Record ---
Author Organization [facility] Address [address] [facility] [address] [place] [address] Care Team Providers Care Corporate Administrative Assistant Name Role Phone Kristi Lieberman Unavailable [phone] Allergies No Known Allergies Reason For Referral No Information Medications Medication SIG (Take, Route, Frequency, Duration) Notes Start Date End Date Status Kyleena Active Trintellix 12/10/2022 Active ANA 3-0.02 MG Tablet 1 tablet Orally Onc e a day Not-Taking/PRN Social History Tobacco Use: Social History Observation Description Date Details (start date - stop date) Never Smoker NA - NA Sex Assigned At : Social History Observation Description Sex Assigned At Female Social History Drugs/Alcohol: Social Info Question Answer Notes Drugs Have you used drugs other than those for medical reasons in the past 12 months? No Steroid Use Have you used anabolic (body building) st eroids? No Alcohol Screen Did you have a drink containing alcohol in the past year? Yes How often did you have a drink containing alcohol in the past year? 2 to 4 times a month (2 points) Points 2 Interpretation Negative Tobacco Use: Social Info Question Answer Notes Tobacco Use/Smoking Are you a nonsmoker Additional Findings: Tobacco Non-User Current no n-smoker Plan Of Treatment No Information Insurance Providers Payer Name Payer Address Payer Phone Subscriber Number Group Number Insured Name Patient Relationship to Insured Coverage Start Date Coverage End Date Lidia SUERO [address] [place] [address] [id number] Monica Guerrier Self - patient is the insured Medical (General) History Medical History History ICD Code Anxiety Depression Surgical History Surgery Date(Month/Year) Breast surgery: fibroadenoma removal 201 9
--- OUTSIDE RECORDS SUMMARY | 2025-07-09 06:55 | XMS_ITS | Encounter Summary ---
Author Organization [facility] Address [address] [place] [address] Care Team Providers Care Ocean Freight Agent Name Role Phone Mathew, Milla Robles RESIDENTIAL DIRECT SUPPORT PROFESSIONAL Primary Care Provider [phone] Reason for Visit * Reason Comments Med Refill Encounter Details Date Type Department Care Team (Late st Contact Info) Description 12/08/2024 [facility]ill [facility] [address] [place] [address] Meaghan Mandel, RESIDENTIAL DIRECT SUPPORT PROFESSIONAL [address] [place] [address] Social History Tobacco Use Types Packs/Day Years [...] encounter Miscellaneous Notes * Telephone Encounter - Marbin Santoro, PharmD - 12/08/2024 2:18 PM EST Refill request does not meet protocol. Sending to clinic for review. Additional info: Appointment compliance - Patient hasn't been seen in clinic in > 1.5 years. Please review for scheduling and if refills are appropriate. documented in this encounter Plan of Treatment Not on file documented as of this encounter Visit Diagnoses Not on filedocumented in this encounter Additional Health Concerns Assessment Noted Time A fall risk assessment has been complete d for the patient 06/03/2023 8:27 AM EDT documented as of this encounter Care Teams Ocean Freight Agent Relationship Specialty Start Date End Date Milla Mathew, LINDA [address] [place] [address] PCP - General 06/03/23 documented as of this encounter
--- OUTSIDE RECORDS SUMMARY | 2025-07-09 06:55 | XMS_ITS | Clinical Summary ---
Author Organization [facility] Address [address] [place] [address] Care Team Providers Care Activity Manager Name Role Phone Mathew, Milla Robles APRN Primary Care Provider [phone] Allergies No known active allergies Medications busPIRone (Buspar) 5 MG tablet 1 Active FLUoxetine (PROzac) 20 MG capsule Take 20 mg by mouth 1 (one) time each day. 1 Active drospirenone-et hinyl estradiol (ANA) 3-0.02 MG tablet Take by mouth. Activ e spironolactone (Aldactone) 50 MG tablet Take 1 tablet (50 mg) by mouth 1 (one) time each day. 3 Active traZODone (Desyrel) 50 MG tablet take 1 tablet by mouth every day at bedtime As Needed for sleep 3 Active methylcellulose (Citrucel) oral powder Take 1/2 tablespoon daily mixed in 8 oz water. After a week, may try increasing to 1 tablespoon daily. 454 g 3 3 Active polyethylene glycol (MiraLax) 17 GM/SCOOP powder Divide half of Miralax mix in 32 oz Gatorade and drink. Wait 6 hours, drink 2nd half of miralax in gatorade to help eliminate stool burden. 116 g 3 Active Active Problems Problem Noted Date Diagnosed Date Anxiety and depression 11/10/2021 Encounters Date Type Department Care Team Description 06/07/2025 9:45 AM EDT [facility] [address] [place] [address] Michelle Pack Encounter for nonprocreative genetic counseling (Primary Dx) 05/31/2025 Travel from Last 3 Months Family History Medical History Relation Name Comments Hypertension Father Colon cancer Paternal Grandfather Diabetes Paternal Grandmother Relation Name Status Comments Father Paternal Grandfather Paternal Grandmother Social History Tobacco Use Types Packs/Day Years [...] Orientation Straight 11/10/2021 7: 55 AM EST Last Filed Vital Signs Vital Sign Reading Time Taken Comments Blood Pressure 109/72 06/03/2023 8:21 AM EDT Pulse 84 06/03/2023 8:21 AM EDT Temperature 36.6 C (97.8 F) 06/03/2023 8:21 AM EDT Respiratory Rate - - Oxygen Saturation 98% 06/03/2023 8:21 AM EDT Inhaled Oxygen Concentration - - Weight 59.4 kg (130 lb 15.3 oz) 06/03/2023 8:21 AM EDT Height 170.2 cm (5' 7 ) 06/03/2023 8:21 AM EDT Body Mass Index 20.51 06/03/2023 8:21 AM EDT Plan of Treatment Health Maintenance Due Date Last Done Comments [facility]-HIV Screening 1999 [facility]-Hepatitis C Screening 1999 [facility]-Infant/Child/Adol SDOH Screenings 1999 [facility]-IPV Vaccines (2 of 3 - 4-dose series) 02/06/2008 01/09/2008, 09/22/2003, 12/16/2000, Additional history exists [facility]- SDOH Screenings 2017 [facility]-Adult SDOH Screenings 2017 [facility]-Hepatitis A Vaccines (2 of 2 - 2-dose series) 01/03/2019 07/03/2018 [facility]-Depression Screening 06/03/2024 06/03/2023 [id number] Vaccine ( season) 2024 09/21/2021, 02/25/2021 [facility]-Influenza Vaccine (#1) 2025 08/24/2022, [facility]-Pap Smear 02/17/2028 02/16/2025, 02/11/2024 [facility]-DTaP,Tdap,and Td Vaccines (8 - Td or Tdap) 06/27/2031 06/27/2021, 05/28/2011, 09/22/2003, Additional history exists [facility]-Zoster Vaccines (1 of 2) 2049 06/07/2011, 09/16/2000 [facility]-Hepatitis B Vaccines Completed 000, 06/14/2000, 03/14/2000 [facility]-HIB Vaccines Completed 12/16/2000, , 01/09/2000, Additional history exists [facility]-Pneumococcal Vaccine: Pediatrics (0 to 5 Years) and At-Risk Patients (6 to 49 Years) Completed 12/16/2000, 09/16/2000, 06/14/2000 [facility]-Varicella Vaccines Completed 06/07/2011, 1999 HPV Vaccines Completed 11/22/2014, 05/2014, 05/11/2014 [facility]-Rotavirus Vaccines Aged Out No lo nger eligible based on patient's age to complete this topic Insurance ANTH Care Teams Activity Manager Relationship Specialty Start Date End Date Milla Mathew APRN [address] [place] [address] PCP - General 06/03/23
--- OUTSIDE RECORDS SUMMARY | 2025-07-09 06:55 | XMS_ITS | Encounter Summary ---
Author Organization [facility] Address [address] [place] [address] Care Team Providers Care Plasma Cutting Machine Operator Name Role Phone Milla Mathew APRN Primary Care Provider Encounter Details Date Type Department Care Team (Latest Contact Info) Description 05/31/2025 Travel Social History Tobacco Use Types Packs/Day [...] as of this encounter Plan of Treatment Not on file documented as of this encounter Visit Diagnoses Not on filedocumented in this encounter Additional Health Concerns Assessment Noted Time A fall risk assessment has been complete d for the patient 06/03/2023 8:27 AM EDT documented as of this encounter Care Teams Plasma Cutting Machine Operator Relationship Specialty Start Date End Date Milla Mathew APRN [address] [place] [address] PCP - General 06/03/23 documented as of this encounter
[2025-07-09] MEDS: SINCALIDE 1.2 MCG in 0.9 % SODIUM CHLORIDE 50 ML 100 MCG IV (07:00)
--- NOTE | 2025-07-09 07:00 | NM_ITS ---
FINAL REPORT CLINICAL HISTORY: RUQ PAIN COMPARISON: None FINDINGS: Sequential anterior projection images of the abdomen were obtained after the intravenous injection of 7.89 mCi technetium 99m Choletec. There is normal uptake of radiotracer by the liver. The bile ducts are visualized by 5 minutes. Gallbladder activity is seen by 5 minutes. Bowel activity is not noted by 60 minutes. After 1 hour, 1.2 ?g of CCK was injected intravenously for calculation of gallbladder ejection fraction. The gallbladder ejection fraction is 91%, which is within normal limits. IMPRESSION: Bowel activity was not noted within 60 minutes, consistent with delay of tracer activity in the small bowel. This can be seen with sphincter of Oddi dysfunction. Normal gallbladder ejection fraction of 91%. Reviewed, Interpreted and Dictated by Sarika Kay MD Transcribed by Gabriela Peguero Authenticated and [facility]
[2025-07-09] MEDS: ISOTOPE CHOLETECH;1 DOSE (UP TO 15 MCI) IV (09:10)
[2025-07-09] MEDS: SODIUM CHLORIDE 0.9% 10ML SYR (RAD ONLY) 10 ML IV (09:10)
== END 2025-07-09 23:59 | disposition home or self-care (01) ==
LOC: RAD 06:53
PROVIDERS: PCP Nurse Practitioner Family; Visit Provider Surgery
DX: K83.4 Spasm of sphincter of Oddi (principal); R93.3 Abnormal findings on diagnostic imaging of other parts of digestive tract; R10.11 Right upper quadrant pain
CPT/HCPCS: 78227; A9537; J2805